=== PATIENT | female | born 1990 | race Caucasian/White ===

== ENCOUNTER 2016-09-08 10:44 | Inpatient (IN) ==
[2016-09-08] MEDS ORDERED: Ondansetron 4 MG/2 ML VIAL IVP ONE ×2 (12:11→13:35)
[2016-09-08] MEDS ORDERED: 0.9 % Sodium Chloride 1,000 ML IVC ONE (12:11)
[2016-09-08] MEDS ORDERED: *HR* HYDROmorphone (PF) 1 MG/ML SYRINGE IVP ONE (12:11)
--- NOTE | 2016-09-08 12:14 | Emergency Department Note ---
Disposition Clinical Impression: Colitis presumed infectious Disposition: Admitted As Inpatient Condition: Good Referrals: Germania Ballard MD [Primary Care Provider] - Forms: Work/School Release, ED Satisfaction Letter Time of Disposition: 15:16 Abdominal Pain HPI - General Chief Complaint: ED Abdominal Pain Stated Complaint: RLQ pain Time Seen by Provider: 09/08/16 10:58 Source: patient Mode of arrival: ambulatory Nursing Notes Reviewed: Yes Vital Signs Reviewed: Yes - History of Present Illness HPI Narrative: History of present illness: 26-year-old obese female presents with her fiance ambulatory to the ER with a chief complaint of right sided and right lower quadrant pain with nausea worse after eating since Thursday. Patient was seen at a local ER on Thursday ( [facility]) and stated she had a urinalysis and blood work up which they have never discussed with her per patient and abdominal pelvic CT scan which they stated her appendix was okay but "Joanie inflamed bowel due to bacteria going throat". Patient stated she was discharged on [place] 7.5 mg which is not controlling her pain anymore something for nausea and Levaquin antibiotic. He should not did state that if the symptoms got worse she may need to "come into the hospital to get this infection taken care of". Patient does have a history of bilateral tubal ligation left oophorectomy and a cholecystectomy in the distant past. Patient states when she was at work just walking around made her very uncomfortable and she "could not stand it anymore". 8 out of 10 cramping and dull. She says her appetite is decreased and the last time she ate was some cake yesterday but that did not sit in her stomach. No diarrhea or dysuria. She is on Depo-Provera and has a regular menses. Denies new sexual contacts, vaginal bleeding, vaginal discharge or new sexual partners. Denies headache or photophobia dyspnea or chest pain. We had the patient sign a release for the outside hospital in order to find out a little bit more about her ED visit this past Thursday on September 06. Pain Scale: 8 - Related Data Home Medications Medication Instructions Recorded Confirmed No Known Home Drugs 10/07/15 10/07/15 Allergies Allergy/AdvReac Type Severity Reaction Status Date / Time meclizine Allergy Hives Verified 06/25/15 19:10 morphine Allergy Hives Verified 06/25/15 19:10 All systems ED: reviewed and negative except as stated. Gastrointestinal: Reports: abdominal pain, nausea, vomiting. Denies: diarrhea Abdominal Pain PMH - Past Medical History Medical history: Reports: migraine Female Surgical History: Reports: , cholecystectomy, herniorrhaphy, other (Left oophorectomy secondary to ovarian cyst) [employer] history: Reports: non-contributory Psychiatric history: Reports: anxiety - Social History Smoking status: Never smoker Alcohol use: Reports: occasionally Drug use: Reports: none Physical Exam - General Limitations: no limitations General appearance: alert, in distress - Head Head exam: atraumatic, normocephalic - Eye Eye exam: Present: normal appearance, PERRL - ENT ENT exam: normal exam, normal oropharynx - Neck Neck exam: Present: normal inspection, full ROM - Chest Chest inspection: Present: normal inspection, symmetric chest wall rise - Respiratory Respiratory exam: Present: normal lung sounds bilaterally - Cardiovascular Cardiovascular exam: Present: regular rate, normal rhythm - Abdominal Exam Abdominal exam: Present: soft, tenderness, guarding, normal bowel sounds. Absent: distention, rebound, rigidity Abdominal tenderness: Present: RUQ, RLQ, mild - Extremities Exam Extremities exam: Present: normal inspection, full ROM - Expanded Lower Extremity Exam Neurovascular/Tendon exam: Present: normal capillary refill Gait: observed and normal - Back Exam Back exam: Present: normal inspection, full ROM - Neurological Exam Neurological exam: Present: alert, oriented X3, CN II-XII intact - Psychiatric Psychiatric exam: Present: normal affect, normal mood - Skin Skin exam: Present: warm, dry, intact Course - Reevaluation(s) Reevaluation #1: Patient's abdominal examination shows guarding but no rebound in the right upper and lower quadrants. No CVAT. No distention and good bowel sounds. Patient will get IV fluids anti-medics and analgesics. We will repeat blood work and urinalysis with test. Holding off on further imaging until review the workup done on Thursday, September 06 at the outside ED. Patient is comfortable with this plan. Disposition pending Time: 12:16 Reevaluation #2: ED lab work and urinalysis otherwise unremarkable baseline. It has been almost 3 hours since the patient's arrival and we sent a request for information to the outside hospital for results of the ED visit and no response. Due to the patient's worsening right lower quadrant pain and being symptomatic especially on history and physical examination. I discussed the risks and benefits of the patient receiving another CAT scan in a short period of time with an extra dose of radiation and she is okay with that. Abdominal pelvic CT ordered with IV contrast only. Patient was also feeling nauseated and I added 4 mg of IV Zofran. Disposition pending. Time: 13:36 Reevaluation #3: ED workup is complete, abdominal pelvic CT with IV contrast read by radiology as a cecal colitis. Appendix within normal limits with local inflammatory changes around the cecum with enlarged lymph nodes. No signs of free air perforation or abscess formation. Since the patient needed parenteral narcotics to control her pain and her symptoms are worsening we discussed putting the patient in for treatment and evaluation and she is agreeable with this plan. Hospitalist has been paged. Since this is a nonsurgical condition at this time. We will start with Zosyn and IV antibiotics. Admission pending Time: 15:14 - Consultations Consultation #1: Case with hospitalist Dr. Choi. Patient accepted for admission in stable condition. He requested a surgical consultation which I placed in the computer. Patient admitted in stable condition. Vital Signs Temperature 98.1 F 09/08/16 10:47 Pulse Rate 91 09/08/16 10:47 Respiratory Rate 16 09/08/16 10:47 Blood Pressure 117/85 09/08/16 10:47 O2 Sat by Pulse Oximetry 91 09/08/16 10:47 Temperature 98.1 F 09/08/16 10:47 Pulse Rate 83 09/08/16 14:44 Respiratory Rate 16 09/08/16 14:44 Blood Pressure 140/77 09/08/16 14:44 O2 Sat by Pulse Oximetry 96 09/08/16 14:44 Oxygen Delivery Oxygen Delivery Room Air Abdominal Pain - Lab Data Result diagrams: 09/08/16 12:37 09/08/16 12:37 Lab Results 09/08/16 09/08/16 09/08/16 Range/Units 12:26 12:26 12:37 WBC 10.5 (4.3-11.1) K/mcL RBC 5.21 H (3.82-4.97) M/mcL Hgb 14.2 (11.5-15.4) g/dL Hct 42.9 (35.3-44.9) % MCV 82.3 L (83.0-100.0) fL MCH 27.3 L (28.0-33.3) pg MCHC 33.1 (31.6-35.5) g/dL RDW 13.6 (11.5-14.5) % Plt Count 337 (140-400) K/mcL MPV 9.6 (9.4-12.4) fL Immature Gran % 0.4 (0-4) % Seg Neutrophils % 71.0 % Lymphocytes % 20.9 % Monocytes % 6.8 % Eosinophils % 0.6 % Basophils % 0.3 % Neutrophils # 7.4 (1.6-8.9) K/mcL Lymphocytes # 2.2 (0.6-4.6) K/mcL Monocytes # 0.7 (0.0-1.3) K/mcL Eosinophils # 0.1 (0.0-0.6) K/mcL Basophils # 0.0 (0.0-0.2) K/mcL Immature Plt Fraction 2.5 (1.1-6.1) % Sodium (136-145) mEq/L Potassium (3.5-4.5) mEq/L Chloride (98-109) mEq/L Carbon Dioxide (19-29) mEq/L BUN (7-20) mg/dL Creatinine (0.57-1.11) mg/dL Est GFR ( Amer) (> 60) Est GFR (Non-Af Amer) (> 60) BUN/Creatinine Ratio (6-26) Glucose (70-99) mg/dL Calculated Osmolality (280-300) Calcium (8.6-10.8) mg/dL Total Bilirubin (0.2-1.2) mg/dL Direct Bilirubin (0.0-0.5) mg/dL Indirect Bilirubin (0.0-1.2) mg/dL AST (5-34) Units/L ALT (0-55) Units/L Alkaline Phosphatase (38-126) Units/L Serum Total Protein (6.0-8.3) g/dL Albumin (3.5-5.0) g/dL Globulin (2.4-3.5) g/dL Albumin/Globulin Ratio (1.1-2.2) Lipase (8-78) Units/L Urine Color Yellow (Yellow) Urine Clarity Cloudy A (Clear) Urine pH 6.0 (5.0-8.0) pH Units Ur Specific [place] 1.026 H (1.010-1.025) Urine Protein 30 H (Neg-Trace) mg/dL Urine Glucose (UA) Normal (Normal) mg/dL Urine Ketones Negative (Negative) mg/dL Urine Blood Negative (Negative) Urine Nitrite Negative (Negative) Urine Bilirubin Negative (Negative) Urine Urobilinogen Normal (Normal) mg/dL Ur Leukocyte Esterase Negative (Negative) Urine Microscopic RBC 0-3 (0-3) per hpf Urine Microscopic WBC 0-3 (0-3) per hpf Ur Squamous Epith Cells Many H (None-Few) per lpf Urine Bacteria Few (None-Few) per hpf Hyaline Casts None Seen (None-Few) per lpf Ur Culture Indicated? NO (NO) Urine Test Negative (Negative) 09/08/16 Range/Units 12:37 WBC (4.3-11.1) K/mcL RBC (3.82-4.97) M/mcL Hgb (11.5-15.4) g/dL Hct (35.3-44.9) % MCV (83.0-100.0) fL MCH (28.0-33.3) pg MCHC (31.6-35.5) g/dL RDW (11.5-14.5) % Plt Count (140-400) K/mcL MPV (9.4-12.4) fL Immature Gran % (0-4) % Seg Neutrophils % % Lymphocytes % % Monocytes % % Eosinophils % % Basophils % % Neutrophils # (1.6-8.9) K/mcL Lymphocytes # (0.6-4.6) K/mcL Monocytes # (0.0-1.3) K/mcL Eosinophils # (0.0-0.6) K/mcL Basophils # (0.0-0.2) K/mcL Immature Plt Fraction (1.1-6.1) % Sodium 136 (136-145) mEq/L Potassium 4.9 H (3.5-4.5) mEq/L Chloride 109 (98-109) mEq/L Carbon Dioxide 19 (19-29) mEq/L BUN 7 (7-20) mg/dL Creatinine 0.77 (0.57-1.11) mg/dL Est GFR ( Amer) > 60 (> 60) Est GFR (Non-Af Amer) > 60 (> 60) BUN/Creatinine Ratio 9 (6-26) Glucose 84 (70-99) mg/dL Calculated Osmolality 279 L (280-300) Calcium 9.4 (8.6-10.8) mg/dL Total Bilirubin 0.6 (0.2-1.2) mg/dL Direct Bilirubin 0.2 (0.0-0.5) mg/dL Indirect Bilirubin 0.4 (0.0-1.2) mg/dL AST 27 (5-34) Units/L ALT 22 (0-55) Units/L Alkaline Phosphatase 113 (38-126) Units/L Serum Total Protein 8.0 (6.0-8.3) g/dL Albumin 3.4 L (3.5-5.0) g/dL Globulin 4.6 H (2.4-3.5) g/dL Albumin/Globulin Ratio 0.7 L (1.1-2.2) Lipase < 10 (8-78) Units/L Urine Color (Yellow) Urine Clarity (Clear) Urine pH (5.0-8.0) pH Units Ur Specific [place] (1.010-1.025) Urine Protein (Neg-Trace) mg/dL Urine Glucose (UA) (Normal) mg/dL Urine Ketones (Negative) mg/dL Urine Blood (Negative) Urine Nitrite (Negative) Urine Bilirubin (Negative) Urine Urobilinogen (Normal) mg/dL Ur Leukocyte Esterase (Negative) Urine Microscopic RBC (0-3) per hpf Urine Microscopic WBC (0-3) per hpf Ur Squamous Epith Cells (None-Few) per lpf Urine Bacteria (None-Few) per hpf Hyaline Casts (None-Few) per lpf Ur Culture Indicated? (NO) Urine Test (Negative)
[2016-09-08 12:46] LABS: Basophils % 0.3 %; Eosinophils # 0.1 K/mcL (0.0-0.6); Eosinophils % 0.6 %; Hematocrit 42.9 % (35.3-44.9); Hemoglobin 14.2 g/dL (11.5-15.4); Immature Granulocytes % 0.4 % (0-4); Immature Platelets 2.5 % (1.1-6.1); Lymphocytes # 2.2 K/mcL (0.6-4.6); Lymphocytes % 20.9 %; Mean Corpuscular HGB Conc 33.1 g/dL (31.6-35.5); Mean Corpuscular Hemoglobin 27.3 pg (28.0-33.3); Mean Corpuscular Volume 82.3 fL (83.0-100.0); Mean Platelet Volume 9.6 fL (9.4-12.4); Monocytes # 0.7 K/mcL (0.0-1.3); Monocytes % 6.8 %; Neutrophils # 7.4 K/mcL (1.6-8.9); Platelet Count 337 K/mcL (140-400); Red Blood Count 5.21 M/mcL (3.82-4.97); Red Cell Distribution Width 13.6 % (11.5-14.5)
[2016-09-08 12:48] LABS: Bilirubin,Urine Negative (Negative); Blood,Urine Negative (Negative); Clarity,Urine Cloudy (Clear); Color,Urine Yellow (Yellow); Glucose,Urine (UA) Normal (Normal); Ketones,Urine Negative (Negative); Leukocyte Esterase,Urine Negative (Negative); Nitrite,Urine Negative (Negative); Protein,Urine 30 mg/dL (Neg-Trace); Specific Gravity,Urine 1.026 (1.010-1.025); Urobilinogen,Urine Normal (Normal)
[2016-09-08 12:49] LABS: Bacteria,Urine Few per hpf (None-Few); Hyaline Casts,Urine None Seen per lpf (None-Few); Squamous Epithelial Cell,Urine Many per lpf (None-Few); WBC,Urine 0-3 per hpf (0-3)
[2016-09-08 13:02] LABS: Alanine Aminotransferase 22 Units/L (0-55); Albumin 3.4 g/dL (3.5-5.0); Albumin/Globulin Ratio 0.7 (1.1-2.2); Alkaline Phosphatase 113 Units/L (38-126); BUN/Creatinine Ratio 9 (6-26); Bilirubin,Indirect 0.4 mg/dL (0.0-1.2); Bilirubin,Total 0.6 mg/dL (0.2-1.2); Blood Urea Nitrogen 7 mg/dL (7-20); Calcium 9.4 mg/dL (8.6-10.8); Carbon Dioxide 19 mEq/L (19-29); Chloride 109 mEq/L (98-109); Globulin 4.6 g/dL (2.4-3.5); Glucose 84 mg/dL (70-99); Osmolality,Calculated 279 (280-300); Sodium 136 mEq/L (136-145); eGFR For African Americans > 60 (> 60); eGFR For Non-African Americans > 60 (> 60)
[2016-09-08 13:04] LABS: Aspartate Amino Transferase 27 Units/L (5-34); Bilirubin,Direct 0.2 mg/dL (0.0-0.5); Lipase < 10 Units/L (8-78); Potassium 4.9 mEq/L (3.5-4.5)
[2016-09-08 13:08] LABS: RBC,Urine 0-3 per hpf (0-3)
[2016-09-08] MEDS ORDERED: Piperacillin/Tazobactam 3.375 GM in D5% in Water (Mini-Bag+) 100 ML IVPB ONE (15:17)
--- NOTE | 2016-09-08 16:46 | General Surgery Consult Note ---
<Victoriano Dillard - Last Filed: 09/08/16 18:11> Date of Encounter: 09/08/16 Time of Encounter: 16:44 Assessment and Plan (1) Colitis Current Visit: Yes Status: Acute CT of the abdomen and pelvis demonstrates inflammatory changes with stranding noted around the cecum. There is no cecal wall thickening or findings of appendicitis. No free air was noted. IV fluids IV antibiotics - Zosyn PPI Nothing by mouth Supportive care to include antiemetics and pain control Encouraged ICS and ambulation as tolerated. Monitor with Serial abdominal exams No surgical intervention is required at this time. More likely to be infectious versus IBD d/t HPI We will reevaluate in the morning. Repeat am labs (2) Abdominal pain Current Visit: Yes Status: Acute See above (3) Morbid obesity with BMI of 45.0-49.9, adult Current Visit: Yes Status: Chronic (4) DVT prophylaxis Current Visit: Yes Status: Acute Heparin. Ambulate as tolerated History of Present Illness Consult date: 09/08/16 Reason for consult: abdominal pain Requesting physician: Corby Shen History of present illness: Ms. Beltran is a very pleasant 26-year-old female with past medical history of anxiety and migraine headaches who presents to the [facility] emergency department with a chief complaint of right lower quadrant pain for a duration of 6 days. She states the pain began last Thursday while at work and describes it as sharp, radiating superiorly to her right upper quadrant and constant. Patient reports the pain is associated with nausea and nonbloody emesis approximately 8 times since last Thursday, but emesis 4 this morning. Patient states "it feels like someone is twisting a knife in circles inside my belly ". The pain is worsened with ambulation and activity as well as every time after by mouth intake. She denies any history of this complaint. Over the next several days patient attempted to use Zofran, Tylenol, Advil without any significant relief. She continued to go to work but was unable to on Thursday and went to the [facility] emergency department in [place] (patient signed a release of records and is pending). Of note, per patient -CT of the abdomen and pelvis with IV and oral contrast demonstrated "colitis" and was discharged with Hanna 7.5 and Levaquin. Over the next 2 days her pain did not diminish but again, she attempted to go to work on Thursday morning but the pain was unbearable. On arrival to the emergency room, her vitals were stable, UA and UPT negative, white blood count normal at 10.5, creatinine of 0.77, lipase and LFTs negative. CT of the abdomen and pelvis demonstrated findings consistent with cecal colitis without appendicitis or cecal wall thickening and thus, surgery was consulted. She was started on IV fluids, pain control, Zosyn and antiemetics. Ms. Beltran was subsequently admitted via the hospitalist service to for further workup and management. On evaluation, patient was on to state that she has a history of a section 7 months ago, a bilateral tubal ligation with a left oopherectomy, chole[place] [address] Samuels, and a Spigelian hernoirrhaphy in [address] Samuels . Patient is not taking any blood thinners and denies any recent sick contacts. She states that she routinely has 2 bowel movements per day and her last known bowel movement was Thursday. We will continue to follow Ms. Beltran and offer recommendations and interventions as appropriate. Past Med Surg Social Fam HX - Past Medical History Medical history: migraine Psychiatric history: anxiety - Past Surgical History Surgical History: cholecystectomy - Social History Smoking Status: Never smoker Smokeless Tobacco Status: No Alcohol use: occasionally Drug use: none - Family History Mother Living Status: Still Living Hx Family Cardiac Disorders: Yes (valve prolasp) Hx Family Respiratory Disorders: No Hx Family Cancer: No Hx Family GI Disorders: No Hx Family Endocrine Disorder: Yes (DM) Hx Family Neuromuscular Disorders: No Hx Family Neurologic Disorders: No Hx Family HEENT Disorders: No Hx Family Autoimmune Disorders: No Medications and Allergies DULoxetine [Cymbalta] 30 mg PO DAILY 09/08/16 [History] Allergies meclizine Allergy (Verified 09/08/16 15:32) Hives morphine Allergy (Verified 09/08/16 15:32) Hives Review of Systems All systems PM: A 10-system review of systems was performed and is negative for pertinent findings except as documented above in the HPI. Patient denies any new headaches, chest pain, shortness of breath, change in vision, palpitations, dysuria, hemoptysis, hematochezia, melena, change in bowel movements, lower extremity edema. She does report a change in mood from pain as well as nausea, vomiting and constipation. General Surgery Exam Initial Vital Signs Temp Pulse Resp BP Pulse Ox 98.1 F 91 16 117/85 91 09/08/16 10:47 09/08/16 10:47 09/08/16 10:47 09/08/16 10:47 09/08/16 10:47 - General physical appearance no distress, obese (Morbidly) - Eyes normal ocular movement - ENT atraumatic, normocephalic - Neck trachea midline - Respiratory normal expansion, normal respiratory effort, clear to auscultation - Cardiovascular Cardiovascular exam: Present: RRR - Abdomen Abdomen general surgery: Present: soft, tender, surgical scars. Absent: bowel sounds present, distended, guarding, rebound, rigid Abdominal Tenderness: Present: RLQ - Integumentary Integumentary general surgery: Present: warm and dry - Neurologic Present: CN 2-12 grossly intact - Psychiatric Psychiatric general surgery: Present: appropriate, oriented to person, oriented to place, oriented to time, speech is normal, memory intact Exam Initial Vital Signs Temp Pulse Resp BP Pulse Ox 98.1 F 91 16 117/85 91 09/08/16 10:47 09/08/16 10:47 09/08/16 10:47 09/08/16 10:47 09/08/16 10:47 Results - Labs 09/08/16 12:37 09/08/16 12:37 Short CBC 09/08/16 Range/Units 12:37 WBC 10.5 (4.3-11.1) K/mcL Hgb 14.2 (11.5-15.4) g/dL Hct 42.9 (35.3-44.9) % Plt Count 337 (140-400) K/mcL Neutrophils # 7.4 (1.6-8.9) K/mcL BMP 09/08/16 Range/Units 12:37 Sodium 136 (136-145) mEq/L Potassium 4.9 H (3.5-4.5) mEq/L Chloride 109 (98-109) mEq/L Carbon Dioxide 19 (19-29) mEq/L BUN 7 (7-20) mg/dL Creatinine 0.77 (0.57-1.11) mg/dL Glucose 84 (70-99) mg/dL Calcium 9.4 (8.6-10.8) mg/dL Liver Function 09/08/16 Range/Units 12:37 Total Bilirubin 0.6 (0.2-1.2) mg/dL Direct Bilirubin 0.2 (0.0-0.5) mg/dL AST 27 (5-34) Units/L ALT 22 (0-55) Units/L Alkaline Phosphatase 113 (38-126) Units/L Albumin 3.4 L (3.5-5.0) g/dL Urine 09/08/16 Range/Units 12:26 Urine Color Yellow (Yellow) Urine Clarity Cloudy A (Clear) Urine pH 6.0 (5.0-8.0) pH Units Ur Specific [place] 1.026 H (1.010-1.025) Urine Protein 30 H (Neg-Trace) mg/dL Urine Glucose (UA) Normal (Normal) mg/dL Vital Signs Temp Pulse Resp BP Pulse Ox 09/08/16 15:56 98.7 F 93 16 169/93 97 09/08/16 15:34 16 117/72 09/08/16 14:44 83 16 140/77 96 09/08/16 12:42 99 129/85 97 09/08/16 11:07 91 18 123/93 97 09/08/16 10:47 98.1 F 91 16 117/85 91 Intake and Output 09/08/16 09/08/16 09/08/16 07:59 15:59 23:59 Output Total 200 / 200 Balance -200 / -200 Output: Urine 200 / 200 Other: # Bowel Movements 0 Weight 121.733 kg 119.295 kg Patient Weight 09/08/16 23:59 Weight 119.295 kg - Imaging CT scan - abdomen: report reviewed, image reviewed Consult Discharge Plan - Plan Referrals: Gemrania Ballard MD [Primary Care Provider] - 09/26/16 10:00 am <Aga Samuels - Last Filed: 09/09/16 17:00> Date of Encounter: 09/09/16 Assessment and Plan (1) Morbid obesity Current Visit: Yes Status: Acute (2) Abdominal pain Current Visit: Yes Status: Acute prn pain control serial abdominal exams continue Abx Qualifiers: Abdominal location: right upper quadrant Qualified Code(s): R10.11 - Right upper quadrant pain (3) Colitis Current Visit: Yes Status: Acute CT scan personally reviewed by myself continue ivf prn pain control advance diet as tolerate will need colonoscopy as outpatient in ~8 weeks (4) DVT prophylaxis Current Visit: Yes Status: Acute (5) Hypertension Current Visit: Yes Status: Acute Qualifiers: Hypertension type: other secondary hypertension Qualified Code(s): I15.8 - Other secondary hypertension (6) GERD (gastroesophageal reflux disease) Current Visit: Yes Status: Chronic Qualifiers: Esophagitis presence: esophagitis presence not specified Qualified Code(s) : K21.9 - Gastro-esophageal reflux disease without esophagitis Past Med Surg Social Fam HX - Past Medical History Source: patient - Past Surgical History Surgical History: cholecystectomy, herniorrhaphy - Family History Mother Race: Family Member Ethnicity: Non- Living Status: Still Living Hx Family Cardiac Disorders: Yes (Mitral valve prolapse, HLD) Hx Family Respiratory Disorders: No Hx Family Cancer: No Hx Family GI Disorders: No Hx Family Endocrine Disorder: Yes (DM) Hx Family Neuromuscular Disorders: No Hx Family Neurologic Disorders: No Hx Family HEENT Disorders: No Hx Family Autoimmune Disorders: No Father Race: Family Member Ethnicity: Non- Living Status: Still Living Hx Family Cardiac Disorders: Yes (HTN) Hx Family Cancer: Yes Hx Family Endocrine Disorder: Yes (DM) Brother Race: Family Member Ethnicity: Non- Living Status: Still Living Hx Family Neurologic Disorders: Yes (Migraines) Sister Race: Family Member Ethnicity: Non- Living Status: Still Living Hx Family Neurologic Disorders: Yes (Migraines) Review of Systems All systems PM: A 10-system review of systems was performed and is negative for pertinent findings except as documented above in the HPI. General Surgery Exam Initial Vital Signs Temp Pulse Resp BP Pulse Ox 98.1 F 91 16 117/85 91 09/08/16 10:47 09/08/16 10:47 09/08/16 10:47 09/08/16 10:47 09/08/16 10:47 - General physical appearance well developed, well nourished, no distress - Eyes PERRL, normal ocular movement - ENT normal mucosa, normocephalic - Neck trachea midline - Respiratory normal respiratory effort, clear to auscultation - Cardiovascular Cardiovascular exam: Present: RRR - Abdomen Abdomen general surgery: Present: bowel sounds present, soft, tender Abdominal Tenderness: Present: RLQ, diffusely - Integumentary Integumentary general surgery: Present: warm and dry, no abnormal pigmentation - Neurologic Present: CN 2-12 grossly intact - Musculoskeletal Present: normal gait, normal posture - Psychiatric Psychiatric general surgery: Present: A&Ox3, speech is normal Exam Initial Vital Signs Temp Pulse Resp BP Pulse Ox 98.1 F 91 16 117/85 91 09/08/16 10:47 09/08/16 10:47 09/08/16 10:47 09/08/16 10:47 09/08/16 10:47 Results - Labs 09/09/16 06:46 09/09/16 06:46 Abnormal lab results MCV 82.6 fL (83.0-100.0) L 09/09/16 06:46 MCH 27.8 pg (28.0-33.3) L 09/09/16 06:46 Albumin 3.4 g/dL (3.5-5.0) L 09/08/16 12:37 Globulin 4.6 g/dL (2.4-3.5) H 09/08/16 12:37 Albumin/Globulin Ratio 0.7 (1.1-2.2) L 09/08/16 12:37 HDL Cholesterol 29 mg/dL (40-59) L 09/09/16 06:46 Cholesterol/HDL Ratio 5.2 (0-4.9) H 09/09/16 06:46 Urine Clarity Cloudy (Clear) A 09/08/16 12:26 Ur Specific [place] 1.026 (1.010-1.025) H 09/08/16 12:26 Urine Protein 30 mg/dL (Neg-Trace) H 09/08/16 12:26 Ur Squamous Epith Cells Many per lpf (None-Few) H 09/08/16 12:26 Diabetes panel 09/09/16 Range/Units 06:46 Sodium 136 (136-145) mEq/L Potassium 4.0 (3.5-4.5) mEq/L Chloride 108 (98-109) mEq/L Carbon Dioxide 24 (19-29) mEq/L BUN 7 (7-20) mg/dL Creatinine 0.71 (0.57-1.11) mg/dL Glucose 90 (70-99) mg/dL Calcium 8.6 (8.6-10.8) mg/dL Triglycerides 125 (< 150) mg/dL HDL Cholesterol 29 L (40-59) mg/dL Calcium panel 09/09/16 Range/Units 06:46 Calcium 8.6 (8.6-10.8) mg/dL Pituitary panel 09/09/16 Range/Units 06:46 Sodium 136 (136-145) mEq/L Potassium 4.0 (3.5-4.5) mEq/L Chloride 108 (98-109) mEq/L Carbon Dioxide 24 (19-29) mEq/L BUN 7 (7-20) mg/dL Creatinine 0.71 (0.57-1.11) mg/dL Glucose 90 (70-99) mg/dL Calcium 8.6 (8.6-10.8) mg/dL Adrenal panel 09/09/16 Range/Units 06:46 Sodium 136 (136-145) mEq/L Potassium 4.0 (3.5-4.5) mEq/L Chloride 108 (98-109) mEq/L Carbon Dioxide 24 (19-29) mEq/L BUN 7 (7-20) mg/dL Creatinine 0.71 (0.57-1.11) mg/dL Glucose 90 (70-99) mg/dL Calcium 8.6 (8.6-10.8) mg/dL All other labs normal. - Imaging CT scan - abdomen: report reviewed, image reviewed CT scan - pelvis: report reviewed, image reviewed - Attending Attestation I examined this patient and my medical decision-making was reviewed with the Resident Physician. I agree with the documented findings, disposition and treatment plan as described except to the extent set forth below.
[2016-09-08] MEDS ORDERED: Naloxone 0.4 MG/ML INJ IVP PRN (17:08)
[2016-09-08] MEDS ORDERED: Acetaminophen 325 MG TABLET PO PRN (17:08)
[2016-09-08] MEDS ORDERED: Ondansetron 4 MG/2 ML VIAL IVP PRN (17:11)
[2016-09-08] MEDS: Pantoprazole 40 MG VIAL IVP SCH (17:40)
[2016-09-08] MEDS: 0.9 % Sodium Chloride 1,000 ML IVC SCH (17:41)
--- NOTE | 2016-09-08 17:45 | Internal Med History&Physical ---
<MelizacheogetHeber roman - Last Filed: 09/08/16 18:23> Date of Encounter: 09/08/16 Time of Encounter: 15:30 Assessment and Plan (1) Colitis Current visit: Yes Status: Acute Patient presents with new onset of acute abdominal pain in RUQ that she states has been going on for the past four days. Patient reports this has never happened before. Patient is post-cholecystectomy and states that nausea and vomiting are not new for her, but this is much worse. CT of the abdomen/pelvis with contrast today shows there is nonspecific inflammatory stranding adjacent to the cecum. There is no evidence of appendicitis. No definite cecal wall thickening is demonstrated. However, the findings most likely indicate infectious or inflammatory cecal colitis. Mildly prominent lymph nodes in the right lower quadrant are likely reactive. There is also a tiny non-obstructing left renal stone. Patient to be NPO and will receive IV fluids 0.9 NS at 100 mL/ HR. IV Zosyn administered in the ED and will be continued at 3.375 gm Q8 for infection coverage of presumed infectious colitis. Pain medications for pain, IV Zofran for nausea, and IVP Protonix. Up with assist due to current pain. Follow-up labs to monitor for increased signs of infection. Surgical consult ordered and placed in the ED. (2) Abdominal pain Current visit: Yes Status: Acute Patient presents with acute abdominal pain related to diagnosis of colitis. NPO status with stair-step pain medication to control pain and discomfort. Up with assist due to pain. Qualifiers: Abdominal location: right upper quadrant Qualified Code(s): R10.11 - Right upper quadrant pain (3) Nausea & vomiting Current visit: Yes Status: Acute Patient presents with intractable nausea and vomiting for the past four days related to her abdominal pain which is likely colitis based on CT scan of the abdomen/pelvis. Patient placed as NPO with orders for IVP Protonix 40 mg daily and IV Zofran PRN. Will monitor I&O and daily weight. Qualifiers: Vomiting type: cyclical vomiting Vomiting Intractability: non-intractable Qualified Code(s): G43.A0 - Cyclical vomiting, not intractable (4) Hypertension Current visit: Yes Status: Acute Patient presents with hypertension that she states she normally does not experience and takes no medications for. Current HTN is most likely related to patient's current dehydration and pain. Will monitor patient and vital signs and administer low dose HTN medication if BP becomes elevated. Qualifiers: Hypertension type: other secondary hypertension Qualified Code(s): I15.8 - Other secondary hypertension (5) Dehydration Current visit: Yes Status: Acute Patient presents with acute dehydration related to recurrent nausea and vomiting for the past 4 days. Patient to be administered IV fluids 0.9 NS at 100 mL/HR. Will monitor I&O and daily weight. (6) GERD (gastroesophageal reflux disease) Current visit: Yes Status: Acute Patient presents with history of GERD. IVP Protonix 40 mg daily ordered as well as IV Zofran for N/V. Qualifiers: Esophagitis presence: esophagitis presence not specified Qualified Code(s) : K21.9 - Gastro-esophageal reflux disease without esophagitis (7) DVT prophylaxis Current visit: Yes Status: Acute Patient placed on DVT prophylaxis to to current admission protocol and symptomology. Heparin 5,000 units SQ Q8 ordered. Internal Medicine - H&P: HPI Chief complaint: RUQ Abdominal Pain Plans for Post Hospital Care: Home History of present illness: Ms. Beltran is a 26 year old female who presents from the ED with chief complaint of abdominal pain in her RUQ that she reports has been going on for the past four days and become progressively worse. Patient is post- cholecystectomy and states that nausea and vomiting are not new for her. She states that she vomited 3x this morning and continues to be nauseous. She states this has never happened before. Patient was seen at [facility] several days ago with these symptoms and sent home on levaquin which did not help. Patient went to work this morning and could not take the N/V anymore and came to the ED. She denies blood in emesis, stool, or urine; recent illness, chills, diarrhea, dizziness, headache, changes in vision, diaphoresis, pre-syncope, or syncope. Patient's medical history includes migraines and GERD. Patient's CT of the abdomen/pelvis with contrast today shows there is nonspecific inflammatory stranding adjacent to the cecum. There is no evidence of appendicitis. No definite cecal wall thickening is demonstrated. However, the findings most likely indicate infectious or inflammatory cecal colitis. Mildly prominent lymph nodes in the right lower quadrant are likely reactive. There is also a tiny non-obstructing left renal stone. Patient is at moderate risk for infection related to current colitis and will be placed as inpatient status with NPO orders, surgery consult ordered and placed in the ED, IV fluids, and IV Zosyn which was administered in the ED and will be continued at 3.375 gm Q8 for infection coverage. Follow-up labs ordered. Stair-step pain medication ordered to manage patient's current pain as well as IVP Protonix 40 md daily and IV Zofran PRN. Patient to be monitored closely for signs of increasing pain and infection. Time spent with patient > 40 minutes. Past Med Surg Social Fam HX - Past Medical History Source: patient Medical history: GERD, migraine Psychiatric history: anxiety - Past Surgical History Surgical History: , cholecystectomy, herniorrhaphy, other (Left oophorectomy secondary to ovarian cyst) - Social History Smoking Status: Never smoker Smokeless Tobacco Status: No Alcohol use: occasionally Drug use: none Occupational status: employed Current living situation: Home, With Family Activity Level: Independent ambulation, Very active Recent Out of Country Travel Within the Last 8 Weeks: No Exposure or Possible Exposure to Illness During Travel: No - Family History Mother Race: Family Member Ethnicity: Non- Living Status: Still Living Hx Family Cardiac Disorders: Yes (Mitral valve prolapse, HLD) Hx Family Endocrine Disorder: Yes (DM) Father Race: Family Member Ethnicity: Non- Living Status: Still Living Hx Family Cardiac Disorders: Yes (HTN) Hx Family Cancer: Yes Hx Family Endocrine Disorder: Yes (DM) Brother Race: Family Member Ethnicity: Non- Living Status: Still Living Hx Family Neurologic Disorders: Yes (Migraines) Sister Race: Family Member Ethnicity: Non- Living Status: Still Living Hx Family Neurologic Disorders: Yes (Migraines) Internal Medicine - H&P: Meds DULoxetine [Cymbalta] 30 mg PO DAILY 09/08/16 [History] Allergies meclizine Allergy (Verified 09/08/16 15:32) Hives morphine Allergy (Verified 09/08/16 15:32) Hives All Systems PM: A 10-system review of systems was performed and is negative for pertinent findings except as documented above in the HPI. - Constitutional Constitutional: no chills, no fever(s), no night sweats - EENT Eyes: no change in vision, no discharge, no pain, no photophobia Ears: no ear discharge, no ear pain, no tinnitus Nose, mouth and throat: no dysphagia, no nasal discharge, no neck pain, no sore throat - Breasts Breasts: as per HPI - Cardiovascular Cardiovascular ROS IM: no chest pain, no diaphoresis, no dyspnea, no lightheadedness, no palpitations, no syncope - Respiratory Respiratory: no cough, no dyspnea, no wheezing, no excessive phlegm production - Gastrointestinal Gastrointestinal: as per HPI, abdominal pain, nausea, vomiting - Genitourinary Genitourinary: no change in urinary stream, no dysuria, no flank pain, no hematuria Menstruation: as per HPI - Musculoskeletal Musculoskeletal ROS IM: no numbness, no tingling - Integumentary Integumentary IM: no rash, no unusual bruising - Neurological Neurological ROS: no confusion, no convulsions, no focal weakness, no numbness, no tingling, no tremor(s) - Psychiatric Psychiatric: as per HPI - Endocrine Endocrine IM: as per HPI - Hematologic/Lymphatic Hematologic/Lymphatic: no easy bruising - Allergic/Immunologic Allergic/Immunologic: as per HPI - Constitutional Vitals: Temp Pulse Resp BP Pulse Ox 98.7 F 93 16 169/93 97 09/08/16 15:56 09/08/16 15:56 09/08/16 15:56 09/08/16 15:56 09/08/16 15:56 General appearance: Present: cooperative, A&O X 3, morbidly obese, pleasant, no acute distress, answers questions appropriately - Head Head exam: Present: atraumatic, normocephalic - Eye Eye exam: Present: PERRL, conjuntiva pink, sclera anicteric Pupils: Present: PERRL - ENT ENT exam: Present: normal exam, normal external ear exam - Neck Neck exam general surgery: Present: supple, trachea midline. Absent: lymphadenopathy - Respiratory Respiratory exam: Present: CTAB. Absent: accessory muscle use, rales, rhonchi, wheezes - Cardiovascular Cardiovascular exam: Present: RRR, +S1, +S2. Absent: diastolic murmur, gallop, rubs, systolic murmur - GI/Abdominal GI/Abdominal exam: Present: diminished bowel sounds, soft, tenderness - Rectal Rectal exam: Present: deferred - Additional comments: exam deferred. - Extremities Exam Extremities exam: Present: warm, radial pulses palpable and symetrical. Absent : calf tenderness, cyanotic, pedal edema - Back Exam Back exam: Present: normal inspection - Neurological Exam Neurological exam: Present: CN II-XII intact, oriented X3, no focal deficits. Absent: pronater drift, facial droop, speech deficit - Psychiatric Psychiatric exam: Present: normal affect, normal mood - Skin Skin exam: Present: dry, intact Internal Med - H&P Results - Labs CBC & Chem 7: 09/08/16 12:37 09/08/16 12:37 - Diagnostic Studies CT scan - abdomen Additional comments: Impressions Abdomen/Pelvis CT 09/08/16 13:36 IMPRESSION: There is nonspecific inflammatory stranding adjacent to the cecum. There is no evidence of appendicitis. No definite cecal wall thickening is demonstrated. However, the findings most likely indicate infectious or inflammatory cecal colitis. Mildly prominent lymph nodes in the right lower quadrant are likely reactive. Tiny nonobstructing left renal stone D/ / Benjamin Live MD / Benjamin Live MD Interpreting Provider: Benjamin Live MD <ChoiTerri - Last Filed: 09/08/16 19:28> Date of Encounter: 09/08/16 Internal Medicine - H&P: HPI History of present illness: Ms. Beltran is a 26 year old female All Systems PM: A 10-system review of systems was performed and is negative for pertinent findings except as documented above in the HPI. - Constitutional Vitals: Temp Pulse Resp BP Pulse Ox 98.7 F 93 16 169/93 97 09/08/16 15:56 09/08/16 15:56 09/08/16 15:56 09/08/16 15:56 09/08/16 15:56 Internal Med - H&P Results - Labs CBC & Chem 7: 09/08/16 12:37 09/08/16 12:37 - Attending Attestation I saw and examined pt. I discussed with OBSTETRIC ANAESTHETIST regarding management plan. Agree with documentation. Pt has RLQ pain with nausea, vomiting. CT shows enteritis with cecum inflammation. No appenditis. Place pt on NPO, IVF, and cont zosyn.
[2016-09-08] MEDS: Ketorolac 30 MG/ML VIAL IVP PRN (17:48)
[2016-09-08] MEDS: *HR* Heparin 5,000 UNIT/ML VIAL SQ SCH (21:58)
[2016-09-09] MEDS: Ketorolac 30 MG/ML VIAL IVP PRN (01:02)
[2016-09-09] MEDS: 0.9 % Sodium Chloride 1,000 ML IVC SCH ×2 (02:58→16:29)
[2016-09-09] MEDS: Piperacillin/Tazobactam 3.375 GM in D5% in Water (Mini-Bag+) 100 ML IVPB SCH ×3 (04:35→16:30)
[2016-09-09] MEDS: *HR* Heparin 5,000 UNIT/ML VIAL SQ SCH ×3 (05:35→21:06)
[2016-09-09 07:09] LABS: Basophils % 0.4 %; Eosinophils # 0.1 K/mcL (0.0-0.6); Eosinophils % 2.3 %; Hematocrit 36.6 % (35.3-44.9); Immature Granulocytes % 0.2 % (0-4); Lymphocytes # 1.7 K/mcL (0.6-4.6); Lymphocytes % 32.4 %; Mean Corpuscular HGB Conc 33.6 g/dL (31.6-35.5); Mean Corpuscular Hemoglobin 27.8 pg (28.0-33.3); Mean Corpuscular Volume 82.6 fL (83.0-100.0); Monocytes # 0.4 K/mcL (0.0-1.3); Monocytes % 7.9 %; Platelet Count 259 K/mcL (140-400); Red Blood Count 4.43 M/mcL (3.82-4.97); Red Cell Distribution Width 13.5 % (11.5-14.5); Segmented Neutrophils % 56.8 %
[2016-09-09 07:17] LABS: Hemoglobin 12.3 g/dL (11.5-15.4)
[2016-09-09 07:22] LABS: BUN/Creatinine Ratio 10 (6-26); Blood Urea Nitrogen 7 mg/dL (7-20); Calcium 8.6 mg/dL (8.6-10.8); Carbon Dioxide 24 mEq/L (19-29); Chloride 108 mEq/L (98-109); Chol/HDL Ratio 5.2 (0-4.9); Cholesterol 151 mg/dL (< 200); Glucose 90 mg/dL (70-99); HDL Cholesterol 29 mg/dL (40-59); LDL Cholesterol,Calculated 97 mg/dL (0-99); Magnesium 1.7 mg/dL (1.6-2.6); Osmolality,Calculated 280 (280-300); Sodium 136 mEq/L (136-145); Triglycerides 125 mg/dL (< 150); eGFR For African Americans > 60 (> 60); eGFR For Non-African Americans > 60 (> 60)
[2016-09-09] MEDS: Pantoprazole 40 MG VIAL IVP SCH (08:27)
--- NOTE | 2016-09-09 14:22 | General Surgery Progress Note ---
<Wendi Edmond - Last Filed: 09/09/16 14:20> Date of Encounter: 09/09/16 Time of Encounter: 14:00 - Assessment and Plan (1) Colitis Current Visit: Yes Status: Acute Resolving with conservative measures- patient states that her pain is resolving and nausea/vomiting has resolved Clear liquid diet and advance diet as tolerated May saline lock if tolerates liquids IV antibiotics- Zosyn Will need an interval colonoscopy with Dr. Samuels in 6-8 weeks (patient verbalized understanding) Increase activity as tolerated PPI therapy daily Supportive care/pain control (2) Abdominal pain Current Visit: Yes Status: Acute Resolving with conservative treatment Qualifiers: Abdominal location: right upper quadrant Qualified Code(s): R10.11 - Right upper quadrant pain (3) Morbid obesity with BMI of 45.0-49.9, adult Current Visit: Yes Status: Chronic (4) DVT prophylaxis Current Visit: Yes Status: Acute Heparin 5,000 units SQ twice daily for DVT prophylaxis Ambulate hallways TID Subjective Patient reports: no new complaints, feels better, still having pain, pain is less (significantly less), voiding w/o difficulty, no flatus, no bowel movement , afebrile Objective Vital Signs - Last 8 Hours Temp Pulse Resp BP Pulse Ox 09/09/16 10:45 98.9 F 68 16 104/69 95 09/09/16 07:55 96 09/09/16 07:27 99.1 F 84 16 97/65 96 Intake and Output 09/08/16 09/09/16 09/09/16 23:59 07:59 15:59 Intake Total 0 / 0 1000 / 1000 100 / 100 Output Total 100 / 100 0 / 0 Balance -100 / -100 1000 / 1000 100 / 100 Intake: IV Fluids 1000 / 1000 100 / 100 0.9 % Sodium Chloride 1, 1000 / 1000 000 ML @ 100 mls/hr IVC . Q10H [facility]BI Rx#:[id number] Zosyn 3.375 GM In 100 / 100 Dextrose 5% (Minibag+) 100 ML 100 ML @ 25 mls/hr IVPB Q8HR TOBI Rx#: [id number] Oral 0 / 0 0 / 0 Output: Urine 100 / 100 0 / 0 Other: Meal NPO for lunch Blood Glucose* 84 86 - General physical appearance well developed, well nourished, no distress - Eyes normal ocular movement - ENT normal mucosa, atraumatic, normocephalic - Neck Neck exam: trachea midline - Respiratory normal expansion, normal respiratory effort, clear to auscultation - Cardiovascular Cardiovascular exam: Present: RRR - Abdomen Abdomen: Present: bowel sounds present, soft, tender (minimal) Abdominal Tenderness: RUQ - Neurologic CN 2-12 grossly intact - Psychiatric oriented to time, oriented to person, oriented to place, speech is normal, memory intact - Labs 09/09/16 06:46 09/09/16 06:46 Diabetes panel 09/09/16 Range/Units 06:46 Sodium 136 (136-145) mEq/L Potassium 4.0 (3.5-4.5) mEq/L Chloride 108 (98-109) mEq/L Carbon Dioxide 24 (19-29) mEq/L BUN 7 (7-20) mg/dL Creatinine 0.71 (0.57-1.11) mg/dL Glucose 90 (70-99) mg/dL Calcium 8.6 (8.6-10.8) mg/dL Triglycerides 125 (< 150) mg/dL HDL Cholesterol 29 L (40-59) mg/dL Calcium panel 09/09/16 Range/Units 06:46 Calcium 8.6 (8.6-10.8) mg/dL Pituitary panel 09/09/16 Range/Units 06:46 Sodium 136 (136-145) mEq/L Potassium 4.0 (3.5-4.5) mEq/L Chloride 108 (98-109) mEq/L Carbon Dioxide 24 (19-29) mEq/L BUN 7 (7-20) mg/dL Creatinine 0.71 (0.57-1.11) mg/dL Glucose 90 (70-99) mg/dL Calcium 8.6 (8.6-10.8) mg/dL Adrenal panel 09/09/16 Range/Units 06:46 Sodium 136 (136-145) mEq/L Potassium 4.0 (3.5-4.5) mEq/L Chloride 108 (98-109) mEq/L Carbon Dioxide 24 (19-29) mEq/L BUN 7 (7-20) mg/dL Creatinine 0.71 (0.57-1.11) mg/dL Glucose 90 (70-99) mg/dL Calcium 8.6 (8.6-10.8) mg/dL Consult Discharge Plan - Plan Referrals: Germania Ballard MD [Primary Care Provider] - 09/26/16 10:00 am Aga Samuels MD [Partnered Physician] - (2-3 weeks, discuss colonoscopy) <Aga Samuels - Last Filed: 09/09/16 17:02> Date of Encounter: 09/09/16 - Assessment and Plan (1) Morbid obesity Current Visit: Yes Status: Acute (2) Abdominal pain Current Visit: Yes Status: Acute Qualifiers: Abdominal location: right upper quadrant Qualified Code(s): R10.11 - Right upper quadrant pain (3) Colitis Current Visit: Yes Status: Acute (4) DVT prophylaxis Current Visit: Yes Status: Acute (5) Hypertension Current Visit: Yes Status: Acute Qualifiers: Hypertension type: other secondary hypertension Qualified Code(s): I15.8 - Other secondary hypertension (6) GERD (gastroesophageal reflux disease) Current Visit: Yes Status: Chronic Qualifiers: Esophagitis presence: esophagitis presence not specified Qualified Code(s) : K21.9 - Gastro-esophageal reflux disease without esophagitis Objective Vital Signs - Last 8 Hours Temp Pulse Resp BP Pulse Ox 09/09/16 14:00 98.2 F 81 16 111/75 96 09/09/16 10:45 98.9 F 68 16 104/69 95 Intake and Output 09/09/16 09/09/16 09/09/16 07:59 15:59 23:59 Intake Total 1000 / 1000 1200 / 1200 Output Total 0 / 0 Balance 1000 / 1000 1200 / 1200 Intake: IV Fluids 1000 / 1000 1200 / 1200 0.9 % Sodium Chloride 1, 1000 / 1000 1000 / 1000 000 ML @ 100 mls/hr IVC . Q10H [facility]BI Rx#:[id number] Zosyn 3.375 GM In 200 / 200 Dextrose 5% (Minibag+) 100 ML 100 ML @ 25 mls/hr IVPB Q8HR TOBI Rx#: [id number] Oral 0 / 0 Output: Urine 0 / 0 Other: Meal NPO for lunch Blood Glucose* 86 - Labs 09/09/16 06:46 09/09/16 06:46 Diabetes panel 09/09/16 Range/Units 06:46 Sodium 136 (136-145) mEq/L Potassium 4.0 (3.5-4.5) mEq/L Chloride 108 (98-109) mEq/L Carbon Dioxide 24 (19-29) mEq/L BUN 7 (7-20) mg/dL Creatinine 0.71 (0.57-1.11) mg/dL Glucose 90 (70-99) mg/dL Calcium 8.6 (8.6-10.8) mg/dL Triglycerides 125 (< 150) mg/dL HDL Cholesterol 29 L (40-59) mg/dL Calcium panel 09/09/16 Range/Units 06:46 Calcium 8.6 (8.6-10.8) mg/dL Pituitary panel 09/09/16 Range/Units 06:46 Sodium 136 (136-145) mEq/L Potassium 4.0 (3.5-4.5) mEq/L Chloride 108 (98-109) mEq/L Carbon Dioxide 24 (19-29) mEq/L BUN 7 (7-20) mg/dL Creatinine 0.71 (0.57-1.11) mg/dL Glucose 90 (70-99) mg/dL Calcium 8.6 (8.6-10.8) mg/dL Adrenal panel 09/09/16 Range/Units 06:46 Sodium 136 (136-145) mEq/L Potassium 4.0 (3.5-4.5) mEq/L Chloride 108 (98-109) mEq/L Carbon Dioxide 24 (19-29) mEq/L BUN 7 (7-20) mg/dL Creatinine 0.71 (0.57-1.11) mg/dL Glucose 90 (70-99) mg/dL Calcium 8.6 (8.6-10.8) mg/dL - Attending Attestation Patient was seen and examined by myself today but the note is included in the consult with the date for today. Patient's symptoms have significantly improved. Recommend advancing diet as tolerate. Would recommend switching to oral antibiotics such as Cipro and Flagyl. Patient may be discharged home at any point deemed appropriate from a medical standpoint. We will follow up with patient as an outpatient in several weeks for a planned colonoscopy to be done in 8 weeks.
--- NOTE | 2016-09-09 16:56 | Internal Med Progress Note ---
Date of Encounter: 09/09/16 Time of Encounter: 13:45 - Assessment and plan (1) Colitis Current Visit: Yes Status: Acute Assessment and plan: Patient presents with abdominal pain, nausea and vomiting. No fever or leukocytosis. CT abdomen/pelvis shows possible cecal colitis. Continue IV ciprofloxacin and Flagyl. Patient's symptoms are currently improving. Start clear liquid diet and advance as tolerated. Discontinue IV hydration. Supportive care with when necessary antiemetics. Pain control with when necessary IV morphine. Surgery consult appreciated, appreciate recommendations. Outpatient interval colonoscopy in 4-6 weeks. (2) Morbid obesity with BMI of 45.0-49.9, adult Current Visit: Yes Status: Chronic (3) GERD (gastroesophageal reflux disease) Current Visit: Yes Status: Chronic Qualifiers: Esophagitis presence: esophagitis presence not specified Qualified Code(s) : K21.9 - Gastro-esophageal reflux disease without esophagitis - Subjective Interval history: Reports improving abdominal pain. Resolved nausea and vomiting. No bowel movements for the last 5 days. - Constitutional Vitals: Temp Pulse Resp BP Pulse Ox 98.2 F 81 16 111/75 96 09/09/16 14:00 09/09/16 14:00 09/09/16 14:00 09/09/16 14:00 09/09/16 14:00 General appearance: Present: A&O X 3, morbidly obese, answers questions appropriately - Respiratory Respiratory exam: Present: CTAB. Absent: accessory muscle use, rales, rhonchi, wheezes - Cardiovascular Cardiovascular exam: Present: RRR, +S1, +S2. Absent: diastolic murmur, gallop, rubs, systolic murmur - GI/Abdominal GI/Abdominal exam: Present: normal bowel sounds, soft (OBese, mild tenderness in right lower quadrant), no peritoneal signs. Absent: distended, tenderness - Extremities Exam Extremities exam: Present: full ROM, warm, radial pulses palpable and symetrical. Absent: calf tenderness, cyanotic, pedal edema - Neurological Exam Neurological exam: Present: CN II-XII intact, oriented X3, no focal deficits. Absent: pronater drift, facial droop, speech deficit Internal Medicine: Result - Labs CBC & Chem 7: 09/09/16 06:46 09/09/16 06:46 Labs: Short CBC 09/09/16 Range/Units 06:46 WBC 5.3 (4.3-11.1) K/mcL Hgb 12.3 D (11.5-15.4) g/dL Hct 36.6 (35.3-44.9) % Plt Count 259 (140-400) K/mcL Neutrophils # 3.0 (1.6-8.9) K/mcL [facility] 09/09/16 06:46 Sodium 136 Potassium 4.0 Chloride 108 Carbon Dioxide 24 BUN 7 Creatinine 0.71 Glucose 90 Calcium 8.6 Consult Discharge Plan - Plan Referrals: Germania Ballard MD [Primary Care Provider] - 09/26/16 10:00 am
[2016-09-10] MEDS: 0.9 % Sodium Chloride 1,000 ML IVC SCH (01:17)
[2016-09-10] MEDS: Piperacillin/Tazobactam 3.375 GM in D5% in Water (Mini-Bag+) 100 ML IVPB SCH (01:18)
[2016-09-10] MEDS: *HR* Heparin 5,000 UNIT/ML VIAL SQ SCH ×2 (05:11→13:11)
[2016-09-10] MEDS ORDERED: MetroNIDAZOLE 500 MG/100 ML 500 MG/100 ML BAG IVPB SCH (08:17)
[2016-09-10] MEDS: Pantoprazole 40 MG VIAL IVP SCH (09:21)
[2016-09-10 11:38] VITALS: BP 105/72
--- NOTE | 2016-09-10 12:30 | Discharge Summary ---
Date of Encounter: 09/10/16 Time of Encounter: 12:28 - Discharge Diagnosis (1) Colitis Priority: Primary Status: Acute (2) Morbid obesity with BMI of 45.0-49.9, adult Priority: Secondary Status: Chronic (3) GERD (gastroesophageal reflux disease) Priority: Secondary Status: Chronic Qualifiers: Esophagitis presence: esophagitis presence not specified Qualified Code(s) : K21.9 - Gastro-esophageal reflux disease without esophagitis - Discharge Medications Prescriptions: Ciprofloxacin HCl [Cipro] 500 mg PO TID #10 tablet metroNIDAZOLE [Flagyl] 500 mg PO TID #15 tablet Home Medications: DULoxetine [Cymbalta] 30 mg PO DAILY 09/08/16 [History] Ciprofloxacin HCl [Cipro] 500 mg PO TID #10 tablet 09/10/16 [Rx] metroNIDAZOLE [Flagyl] 500 mg PO TID #15 tablet 09/10/16 [Rx] Allergies/Adverse Reactions: Allergies meclizine Allergy (Verified 09/08/16 15:32) Hives morphine Allergy (Verified 09/08/16 15:32) Hives Date of admission: 09/08/16 18:25 Primary care physician: Germania Frederick Discharging clinician: Janie Beaulieu Anticipated date of discharge: 09/10/16 - Patient Status Disposition: Home, Self-Care Condition: Good Functional capacity at discharge: independent ambulation Overall status at discharge: patient is progressing back to baseline - Discharge Instructions Instructions: Irritable Bowel Syndrome (DC) Follow Up With: Aga Samuels MD [Partnered Physician] - (2-3 weeks, discuss colonoscopy) Germania Ballard MD [Primary Care Provider] - 09/26/16 10:00 am Additional Instructions: F/up with [facility] Surgery, as scheduled - Diet and Activity Activity: resume usual activities as tolerated Diet: advance to your usual diet, regular diet Hospital course: Ms. Beltran is a 26 year old female with no significant past medical history, who was admitted with abdominal pain and nausea. CT abdomen/pelvis done in the emergency room showed changes suggestive of pericecal inflammation/cecal colitis. She was started on IV antibiotics-Zosyn along with bowel rest, IV hydration and supportive care with when necessary antiemetics and pain control. Surgery was consulted and recommended no acute intervention. Patient gradually was able to tolerate oral diet and is medically stable for discharge on oral antibiotics. She has been scheduled a follow-up appointment with surgery for interval colonoscopy. - Time Spent with Patient Total time spent providing and/or coordinating discharge services: Greater than 30 minutes (45 min) - Constitutional Vitals: Temp Pulse Resp BP Pulse Ox 98.5 F 81 16 105/72 95 09/10/16 11:33 09/10/16 11:33 09/10/16 11:33 09/10/16 11:33 09/10/16 11:33 General appearance: Present: A&O X 3, morbidly obese, answers questions appropriately - Cardiovascular Cardiovascular exam: Present: RRR, +S1, +S2. Absent: diastolic murmur, gallop, rubs, systolic murmur - GI/Abdominal GI/Abdominal exam: Present: normal bowel sounds, soft, no peritoneal signs. Absent: distended, tenderness
== END 2016-09-10 13:12 | disposition home or self-care (01) | DRG 249 ==
LOC: 3ANU 10:44 → EMEROO 10:44 → 3ANU 15:49 → SUATTDRO 18:25
PROVIDERS: ADMIT Internal Medicine; ATTEND Internal Medicine